=== PATIENT | female | born 1975 | race Caucasian/White ===

== ENCOUNTER 2016-09-19 08:12 | Emergency (ER) | payer OTHER ==
[2016-09-19] MEDS ORDERED: KEFLEX PO ONE (09:22)
[2016-09-19] MEDS ORDERED: DIPHTHERIA/TETANUS ADULT IM ONE (09:22)
--- NOTE | 2016-09-19 09:25 | PROVIDER DOCUMENTATION ---
HPI-Rash/Wound/ReCheck - General Source: patient - History of Present Illness-Dermatology Location: reports: other (right thumb) Quality: reports: painful Severity: reports: mild Onset/Duration: reports: 1-3 hours ago Timing: reports: still present Context/Associated Symptoms: reports: laceration Identifiable cause?: Yes Locality of Occurance: Home Similar Symptoms Previously?: No Recently seen or treated by another doctor?: No <Kamran Marcelo - Last Filed: 09/19/16 09:22> <Vincent Dill - Last Filed: 09/19/16 10:31> - General Chief Complaint: Laceration[s] Stated Complaint: LACERATION{S} Time Seen by Provider: 09/19/16 09:12 Allergies/Adverse Reactions: Allergies Allergy/AdvReac Type Severity Reaction Status Date / Time No Known Allergies Allergy Verified 12/22/15 05:53 Home Medications: Home Medication List Medication Instructions Recorded Confirmed Last Taken Type Losartan [Cozaar] 100 mg PO DAILY 01/23/13 12/22/15 12/21/15 09:00 History Ondansetron Odt [Zofran 8Mg Odt] 8 mg PO Q8H PRN PRN #15 tablet 12/22/15 Unknown Rx Oxycodone HCl/Acetaminophen 1 - 2 each PO Q4-6H PRN PRN #20 12/22/15 Unknown Rx [Percocet 5-325 mg Tablet] tablet Cephalexin [Keflex] 500 mg PO Q8HR #21 capsule 09/19/16 Unknown Rx - History of Present Illness-Dermatology Nature of Presenting Problem: Pt is a 41 yof that was washing an old glass pitcher this am and cut right thumb reports applied pressure elevated arm and put liquid stiches on it. UPon arrival to er bleeding was controlled. Unknown last tetanus shot. Currently being treated for sinus infection. (Kamran Marcelo) Review of Systems - Adult - REVIEW OF SYSTEMS - ADULT Constitutional: denies: chills, fever, fatique Eyes: reports: no symptoms reported Ears, Nose, Mouth & Throat: denies: ear pain, sinus problem, throat pain Cardiovascular: reports: no symptoms reported Respiratory: reports: no symptoms reported Gastrointestinal: reports: no symptoms reported Genitourinary: reports: no symptoms reported Musculoskeletal: reports: no symptoms reported Integumentary: reports: see HPI. denies: mole changes, nail changes, rash Neurological: reports: no symptoms reported Psychiatric: reports: no symptoms reported Endocrine: reports: no symptoms reported Hematologic/Lymphatic: reports: no symptoms reported Allergic/Immunologic: reports: no symptoms reported All Other Systems: Reviewed and Negative <Kamran Marcelo - Last Filed: 09/19/16 09:22> Past History - Adult - PAST MEDICAL HISTORY-ADULT Review of Records: reports: Nursing Assessment Review, Medications Reviewed Major Childhood Illnesses: reports: denies history Cardiovascular: reports: HTN - IMMUNIZATION STATUS Childhood Immunizations: See Nurse Assessment Flu Vaccine: See Nurse Assessment - FAMILY HISTORY Family History: reviewed, not pertinent - SOCIAL HISTORY Smoking: denies Substance Use: none/never <Kamran Marcelo - Last Filed: 09/19/16 09:22> Physical Exam-General - PHYSICAL EXAM-ADULT Initial Vital Signs Reviewed: Yes - CONSTITUTIONAL General Appearance: appears well, alert, no apparent distress, anxious - EYES Eyes: PERRL/EOMI - HEAD, EARS, NOSE, MOUTH & THROAT HENMT: moist mucous membranes, TMs normal, pharynx normal - RESPIRATORY Respiratory: chest non-tender, lungs clear, normal breath sounds, no pleuratic chest pain, no respiratory distress, no accessory muscle use - CARDIOVASCULAR Cardiovascular: regular rate, rhythm, tachycardia - GASTROINTESTINAL (ABDOMEN) Abdominal Exam: non tender, soft, no organomegaly, no pulsatile mass - MUSCULOSKELETAL Back Exam: normal inspection, no CVA tenderness, no vertebral tenderness Extremity: normal range of motion, non-tender - SKIN Integumentary: normal color, normal turgor, warm/dry, laceration(s) (closed 1cm lac to right lateral thumb curved in nature no bleeding. no need for stitches superficial) - PSYCHIATRIC Psych/Mental Status: normal thought content, normal thought process, oriented x 3, anxious <Kamran Marcelo - Last Filed: 09/19/16 09:22> Progress <Kamran Marcelo - Last Filed: 09/19/16 09:22> <Vincent Dill - Last Filed: 09/19/16 10:31> - PLAN OF CARE/RESULTS Progress/Plan/Lab Results: Orders Category Date Time Status CephALEXIN [Keflex] Med 09/19/16 09:22 Discontinued 500 mg PO NOW ONE Diphtheria/Tetanus Adult Med 03/09/17 09:22 Discontinued 0.5 ml IM .ONCE ONE Vital Signs - 24 hr 09/19/16 08:17 Temperature 97.2 F L Pulse Rate 101 H Respiratory 18 Rate Blood Pressure 146/102 O2 Sat by Pulse 98 Oximetry (Kamran Marcelo) Departure - Departure Time of Disposition Order: :25 Certified Medical Emergency: Emergent <Kamran Marcelo - Last Filed: 09/19/16 09:22> - Departure Certified Medical Emergency: Emergent <Vincent Dill - Last Filed: 09/19/16 10:31> - Departure DIAGNOSIS: Thumb laceration Qualifiers: Encounter type: initial encounter Laterality: right Qualified Code(s): S61.011A - Laceration without foreign body of right thumb without damage to nail , initial encounter Disposition: HOME 01 Condition: Stable Additional Instructions: ED Follow Up Instructions: You have been treated by a care provider in the Emergency Department. These instructions are being provided to you so you can have an understanding of how to care for yourself upon discharge. Upon discharge from the Emergency Department, you are responsible for making arrangements for follow-up care by a physician of your choice. Take all prescribed medications as directed. Return to the Emergency Department immediately for any new or worsening symptoms. You may call the Physician Referral phone number at [phone] to obtain a list of Physicians who are taking new patients. Prescriptions: Cephalexin [Keflex] 500 mg PO Q8HR #21 capsule Referrals: Christian Cazares MD [Primary Care Provider] - Instructions: Tissue Adhesive Wound Care Attestation - Scribe Verification/Attestation Scribe:: Kamran Marcelo Acting as Scribe for:: Vincent Dill Scribe documention review:: This chart was documented by a scribe and accurately reflects the service the provider performed and the decisions made by the provider. <Kamran Marcelo - Last Filed: 09/19/16 09:22> Physician Attestation - Physician Attestation I, the provider, attest to the following statement:: Vincent Dill Physician documentation Attestation:: This documentation recorded by the scribe accurately reflects the service I personally performed and the decisions made by me. <Vincent Dill - Last Filed: 09/19/16 10:31>
[2016-09-19] MEDS ORDERED: DIPHTHERIA/TETANUS ADULT ONE (10:35)
[2016-09-19 11:11] VITALS: BP 139/96
== END 2016-09-19 11:24 | disposition home or self-care (01) ==
LOC: P.ED 08:12
DX: S61.011A Laceration without foreign body of right thumb without damage to nail, initial encounter (principal); R00.0 Tachycardia, unspecified; I10 Essential (primary) hypertension; Z79.899 Other long term (current) drug therapy; Z23 Encounter for immunization; W25.XXXA Contact with sharp glass, initial encounter
CPT/HCPCS: 90471; 90714